=== PATIENT | female | born 1960 | race Caucasian/White ===

== ENCOUNTER 2024-09-19 10:50 | Emergency (ER) | payer MEDICARE, SELFPAY ==
--- NOTE | 2024-09-19 10:55 | XR_ITS ---
WS: [id number] XR wrist LT min 3V* [id number] REASON FOR EXAM: fall/injury FINDINGS: Minimally displaced transverse fracture of the distal radial metaphysis with vertical component extending through No significant angulation at the fracture site. No significant foreshortening of the radius. Ulnar styloid intact and normal scapholunate interval. The joint surface. XR/XR wrist LT min 3V* [id number] IMPRESSION: Left wrist fracture as above.
[2024-09-19 11:09] VITALS: BP 123/80; PULSE 75; RESP 16; TEMP 36.7; O2SAT 95; BMI 30.4
--- NOTE | 2024-09-19 11:16 | W.ED.EXTPRO ---
HPI - Extremity Problem General: Chief complaint: Extremity Injury, Upper Stated complaint: fall left wrist area injury Time Seen by Provider: 09/19/24 10:55 Source: patient Mode of arrival: ambulatory Limitations: no limitations History of Present Illness: 63-year-old female states that she had fell in the shower yesterday. States she landed on her left wrist has been having increasing pain in that wrist and swelling rates her pain a 5 out of 10 currently denies hitting her head denies any other injuries. Associated symptoms: Deny chest pain, fever(s) or rash Related Data Previous Rx's ?Medication ?Instructions ?Recorded hydrocodone 5 mg-acetaminophen 325 1 tab PO Q6H PRN pain #14 tabs 09/19/24 mg tablet Allergies Allergy/AdvReac Type Severity Reaction Status Date / Time No Known Allergies Allergy Verified 09/19/24 11:13 Review of Systems Const: Denies: fever(s), chills, body aches or change in appetite ENMT: Denies: throat pain or dental pain Card: Denies: chest pain Resp: Denies: dyspnea GI: Denies: abdominal pain, nausea, vomiting or diarrhea Musc: Reports: extremity pain; Denies: neck pain or back pain Skin/Breast: Denies: rash Neuro: Denies: headache(s) Physical Exam Const: COMMON NORMALS: no acute distress, patient oriented x3 and healthy appearing HENMT: COMMON NORMALS: normocephalic and atraumatic HEAD & SCALP: normocephalic and atraumatic Neck/C-Spine: COMMON NORMALS: full ROM and supple Chest: COMMONS NORMALS: normal inspection of the chest Resp: COMMON NORMALS: normal respiratory effort Cardio: COMMON NORMALS: regular rate RATE: regular rate Extremity: COMMON NORMALS: full ROM NARRATIVE EXTREMITY EXAM: tenderness to right wrist and swelling distal pulses intact Neuro: COMMON NORMALS: patient oriented x3, moves all extremities and no focal motor deficits Psych: COMMON NORMALS: mental status grossly normal, Normal thought process present and cooperative THOUGHT PROCESS: Normal thought process present Skin: COMMON NORMALS: no rashes or lesions noted and no wounds GENERAL SKIN EXAM: no rashes or lesions noted Course Vital Signs: Vital signs: Vital Signs Temperature 98.1 F 09/19/24 11:09 Pulse Rate 75 09/19/24 11:09 Respiratory Rate 16 09/19/24 11:09 Blood Pressure 123/80 09/19/24 11:09 Pulse Oximetry 95 09/19/24 11:09 Oxygen Delivery Me thod Room Air 09/19/24 11:09 MDM - Extremity (Nontraumatic) Medical Decision Making Patient presents here with a left wrist fracture from a fall we will place her in a splint and have her follow-up with orthopedics she is return if worsening she understands agrees to plan Medical Records I reviewed the patient's medical records. Lab Data Radiology Impressions Wrist X-Ray 09/19/24 10:55 IMPRESSION: Left wrist fracture as above. All radiology interpretation(s) finalized by discharge Discharge Plan Discharge Patient Disposition: Home Clinical Impression: Closed fracture of left wrist Qualifiers: Encounter type: initial encounter Qualified Code(s): S62.102A - Fracture of unspecified carpal bone, left wrist, initial encounter for closed fracture Condition: Stable Prescriptions: New hydrocodone-acetaminophen 5-325 mg tablet 1 tab PO Q6H PRN (Reason: pain) Qty: 14 0RF Discharge Orders: Discharge ED (Routine); Ordered 09/19/24 Ordered By: Yessica Sharma Referrals: Carl Barnard DO [Physician, Orthopedics] - 4-7 days Discharge Diet: Advance as tolerated Discharge Activity: Resume usual activity Patient Instructions: Wrist Fracture in Adults (ED) Print Language: Bulgarian Coding Level of Care Code ED Personnel Associate for Anahy Singleton
[2024-09-19] MEDS: HYDROcodone-acetaminophen 5-325 mg Tablet 1 TAB PO (11:32)
[2024-09-19 12:40] VITALS: BP 161/92; PULSE 66; O2SAT 98
--- NOTE | 2024-09-19 14:58 | DCPLANNER ---
messaged ortho for er f/u
== END 2024-09-19 12:40 | disposition home or self-care (01) ==
PROVIDERS: Emergency Provider Emergency Medicine
DX: S62.102A Fracture of unspecified carpal bone, left wrist, initial encounter for closed fracture (principal); W18.2XXA Fall in (into) shower or empty bathtub, initial encounter
CPT/HCPCS: 29125; 73110; 99283; J9999

== ENCOUNTER 2025-05-11 09:00 | Emergency (ER) | payer MEDICARE, MEDICAID, SELFPAY ==
[2025-05-11 09:05] VITALS: BP 158/88; PULSE 77; RESP 15; TEMP 36.6; O2SAT 98; BMI 26.4
--- NOTE | 2025-05-11 09:09 | ECG_ITS ---
[id number]: 2025-05-11 Pat Name: Dayana Marinelli Department: Room: Gender: Female Shoe Designer: : 1960 Requested By: Yessica Sharma Order Number: [id number] Reading MD: CHACORTA RICHTER Measurements Intervals Laura Rate: 63 P: 77 DC: 201 QRS: 60 QRSD: 96 T: 72 QT: 399 QTc: 411 Interpretive Statements SINUS RHYTHM LOW QRS VOLTAGE IN PRECORDIAL LEADS [QRS DEFLECTION < 1.0 mV IN CHEST LEADS] No previous ECG available for comparison Electronically Signed On 05-14-2025 18:53:05 DATA CONTROL ASSISTANT by CHACORTA RICHTER [email or web address]
--- OUTSIDE RECORDS SUMMARY | 2025-05-11 09:09 | XMS_ITS | Encounter Summary ---
Author Organization [facility] Address [address] [place] [address] Care Team Providers Care Burrer Machine Name Role Phone Akiko Lara MD Primary Care Provider [phone] Encounter Details Date Type Department Care Team (Late st Contact Info) Description 09/22/2024 Telephone [facility] [place] [address] [place] [address] Akiko Lara MD [address] [place] [address] Social History Tobacco Use Types Packs/Day Years Used Date Smoking Tobacco: Former Cigarettes 1 35 1 06/23/1985 - 04/22/2021 Smokeless Tobacco: Former Comments:quit 04/2021 Alcohol Use Standard Drinks/Week Comments No 0 (1 standard drink = 0.6 oz pur e alcohol) AUDIT-C Answer Date Recorded Q1: How often do you have a drink containing alcohol? Never 04/22/2024 Q2: How many drinks containi ng alcohol do you have on a typical day when you are drinking? Patient does not drink Q3: How often do you have si x or more drinks on one occasion? 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
--- OUTSIDE RECORDS SUMMARY | 2025-05-11 09:09 | XMS_ITS | Clinical Summary ---
Author Organization [facility] Address [address] [facility] [facility] [place] [address] Phone Care Team Providers Care Nuclear Design Engineer Name Role Phone Akiko Lara MD Primary Care Provider Allergies No known active allergies Medications budesonide-form oterol (SYMBICORT) 160-4.5 mcg/actuation HFA Aerosol Inhaler Take 2 Puffs by inhalation 2 times daily. Active tiotropium (SPIRIVA) 18 mcg capsule Take 18 mcg by inhalation daily. Active albuterol HFA 90 mcg inhaler Take 2 Puffs by inhalation every 6 hours as needed for Shortness of Breath. Active traZODone (DESYREL) 150 mg tablet Take 150 mg by mouth daily at bedtime. Active lisinopril (PRINIVIL) 20 mg tablet Take 20 mg by mouth daily. Active atorvastatin (LIPITOR) 10 mg tablet Take 10 mg by mouth Daily LATE. Active ALPRAZolam (XANAX) 0.25 mg tablet Take 0.25 mg by mouth. 8 Active escitalopram oxalate (LEXAPRO) 10 mg tablet TAKE 1 TABLET(10 MG) BY MOUTH DAILY 8 Active carvediloL (COREG) 25 mg tablet Take 25 mg by mouth 2 times daily. 1 Active levothyroxine 75 mcg tablet Take 1 Tablet by mouth daily. 2 Active meloxicam (MOBIC) 15 mg tablet Take 15 mg by mouth daily. 1 Active omeprazole (PriLOSEC) 20 mg Capsule, Delayed Release(E.C.) Take 20 mg by mouth daily. Active gabapentin (NEURONTIN) 100 mg capsule Take 100 mg by mouth 3 times daily. 2 Active mv,Ca,min-folic acid-vit K1 (One-A-Day Women's 50 Plus) 400-20 mcg Tablet Take 1 Tablet by mouth daily. Active nitrofurantoin (MACROBID) 100 mg capsule TAKE one Capsule BY MOUTH TWICE DAILY for 7 days 2 Active Active Problems Problem Noted Date Diagnosed Date Adhesive capsulitis of right shoulder 06/21/2021 Encounters Date Type Department Care Team Description 04/21/2025 External Device Data [facility] ABSTRACTION Provider, Abstract 03/31/2025 External Device Data [facility] ABSTRACTION Provider, Abstract 03/11/2025 External Device Data [facility] ABSTRACTION Provider, Abstract 03/10/2025 External Device Data [facility] ABSTRACTION Provider, Abstract from Last 3 Months Family History Medical History Relation Name Comments Other Father Other Mother Relation Name Status Comments Father Mother Social History Tobacco Use Types Packs/Day Years Used Date Smoking Tobacco: Former Cigarettes 2 35 1 7 - 2011 Smokeless Tobacco: Never Comments:e cigarette Alcohol Use Standard Drinks/Week Comments No 0 (1 standard drink = 0.6 oz pur e alcohol) Comments No Sex and Gender Information Value Date Recorded Sex Assigned at Not on file 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 Gender Identity Not on file Sexual Orientation Not on file Occupation Industry Job Start Date Job End Date Not on file Not on file Not on file Not on file Last Filed Vital Signs Vital Sign Reading Time Taken Comments Blood Pressure 120/76 07/30/2024 8:45 AM CDT Pulse 71 01/09/2019 8:12 AM CDT Temperature 36.6 C (97.8 F) 01/09/2019 8:12 AM CDT Respiratory Rate 18 01/09/2019 8:12 AM CDT Oxygen Saturation 97% 01/09/2019 8:12 AM CDT Inhaled Oxygen Concentration - - Weight 70.8 kg (156 lb) 07/30/2024 8:45 AM CDT Height 154.9 cm (5' 1 ) 07/30/2024 8:45 AM CDT Body Mass Index 29.48 07/30/2024 8:45 AM CDT Plan of Treatment Health Maintenance Due Date Last Done Comments Pre-Diabetes and Diabetes Screening 1962 DTAP/TDAP/TD VACCINES (1 - Tdap) 1981 HPV/Cotest (21-29) 10/04/1983 CERVICAL CANCER SCREENING 1992 HPV/Cotest (30-65) 1992 PAP SMEAR 1992 COLORECTAL SCREENING 10/04/2007 Colorectal Cancer Screening 10/04/2007 FIT-DNA Q 3 years 10/04/2007 FIT/FOBT Q 1 year 10/04/2007 Flex Sig/CT Colonography Q 5 years 10/04/2007 RSV VACCINE (60+ or ) (1 - Risk 50-74 years 1-dose series) 2012 ZOSTER VACCINE (1 of 2) 2012 INFLUENZA VACCINE (#1) 2024 4, 04/02/2023, 03/09/2022, Additional history exists BREAST CANCER SCREENING 01/24/2025 01/25/20 24, 01/25/2024, 04/18/2022, Additional history exists Lung Cancer Screening 04/12/2025 04/12/2024 , 03/15/2023, 01/03/2022, Additional history exists Insurance [facility] Care Teams Nuclear Design Engineer Relationship Specialty Start Date End Date Akiko Lara MD [address] [place] [id number] PCP - General Family Practice 08/21/10
--- OUTSIDE RECORDS SUMMARY | 2025-05-11 09:09 | XMS_ITS | Clinical Summary ---
Author Organization [facility] [address] [place] [address] Care Team Providers Care Hollow Core Door Frame Assembler Name Role Phone Akiko Lara MD Primary Care Provider Allergies No known active allergies Medications albuterol HFA (PROVENTIL HFA,VENTOLIN HFA,PROAIR HFA) 90 mcg/actuation inhaler Inhale 2 puffs every 4 (four) hours as needed for wheezing Active mv,Ca,min-foli c acid-vit K1 (One-A-Day Women's 50 Plus) 400-20 mcg tablet Take 1 tablet by mouth daily Active omeprazole (PriLOSEC) 20 mg capsule Take 1 capsule (20 mg total) by mouth daily Active Symbicort 160-4.5 mcg/actuation inhaler Inhale 2 puffs 2 (two) times a day 12/07/19 24 Active Spiriva Respimat 2.5 mcg/actuation inhaler INHALE TWO PUFFS BY MOUTH ONCE DAILY as directed 05/22/19 25 Active albuterol 2.5 mg /3 mL (0.083 %) nebulizer solution INHALE ONE vial BY MOUTH via NEBULIZER EVERY 4 TO 6 HOURS NEEDED FOR SHORTNESS OF BREATH 05/30/19 25 Active escitalopram (LEXAPRO) 20 mg tablet TAKE one Tablet BY MOUTH ONCE DAILY 90 tablet 3 08/05/19 25 Active atorvastatin (LIPITOR) 40 mg tablet Take 1 tablet (40 mg total) by mouth daily 100 tablet 1 11/05/19 25 Active levothyroxine (SYNTHROID) 75 mcg tablet TAKE 1 TABLET(75 MCG) BY MOUTH DAILY 90 tablet 1 12/19/19 25 Active losartan (COZAAR) 50 mg tablet TAKE ONE TABLET BY MOUTH ONCE DAILY 90 tablet 3 01/14/20 25 Active carvediloL (COREG) 25 mg tabletIndicati ons:Coronary artery disease of [place] artery of [place] heart with stable angina pectoris,Hyper tension, essential, benign TAKE ONE TABLET BY MOUTH TWICE DAILY WITH MEALS 180 tablet 3 01/14/20 25 Active traZODone (DESYREL) 100 mg tablet TAKE 2 TABLETS BY MOUTH EVERY NIGHT 200 tablet 1 01/16/20 25 Active ALPRAZolam (XANAX) 0.25 mg tablet Take 1 tablet (0.25 mg total) by mouth nightly as needed for anxiety 30 tablet 4 02/10/20 25 Active ezetimibe (ZETIA) 10 mg tabletIndicati ons:Hyperlipid emia, mixed TAKE 1 TABLET(10 MG) BY MOUTH DAILY 90 tablet 3 03/09/20 25 Active pregabalin (LYRICA) 100 mg capsule Take 1 capsule (100 mg total) by mouth 2 (two) times a day 180 capsule 1 04/23/20 25 Active pregabalin (LYRICA) 100 mg capsule Take 1 capsule (100 mg total) by mouth 2 (two) times a day 180 capsule 01/20/20 25 025 Discontinued pregabalin (LYRICA) 100 mg capsule TAKE 1 CAPSULE(100 MG) BY MOUTH TWICE DAILY 180 capsule 1 04/23/20 25 025 Discontinued(Re order) Active Problems Problem Noted Date Diagnosed Date History of tobacco abuse 09/12/2023 Calcification of aorta 04/02/2023 Assessment & Plan (01/01/2024 11:55 AM CDT): Seen on previous CXR-stable so continue risk factor management Assessment & Plan (04/02/2023 10:27 AM GREASE REFINING SUPERVISOR): Seen on previous CXR-stable so continue risk factor management Coronary artery disease of [place] artery of [place] heart with stable angina pectoris 04/02/2023 Assessment & Plan (11/11/2024 4:29 PM CDT): Cardiac catheterization in 2014 revealed mild nonobstructive coronary artery disease. Currently stable with no symptoms suggestive of angina. Continue medical therapy including beta-jacquie, aspirin, statin/ezetimibe Assessment & Plan (01/01/2024 11:56 AM CDT): Stable continue risk factor management and follow up with Cardiology Assessment & Plan (04/02/2023 12:55 PM GREASE REFINING SUPERVISOR): Last cath didn't show stenosis in range needing intervention. Continue risk factor management and rx medications Medicare annual wellness visit, subsequent 03/09 Assessment & Plan (04/22/2024 12:56 PM GREASE REFINING SUPERVISOR): Maintain a healthy balanced diet.Encouraged to maintain a regular exercise regimen. No fall risk Assessment & Plan (04/02/2023 12:53 PM GREASE REFINING SUPERVISOR): Maintain a healthy balanced diet.Encouraged to maintain a regular exercise regimen. No fall risk Assessment & Plan (03/09/2022 8:01 AM CDT): Recommend maintain regular cardiovascular program as tolerated. Pharyngoesophageal dysphagia 11/18/2021 Assessment & Plan (11/18/2021 12:02 PM CDT): I don't feel any obvious cause so will order a swallowing study for further evaluation. Discussed causes and chewing food better and increasing fluids. Will also check a CXR Vitamin D deficiency 07/01/2020 Assessment & Plan (07/01/2020 1:20 PM GREASE REFINING SUPERVISOR): She did not tolerate the rx dose back in january so if still low will erx along with zofran for nausea. Neuropathy 07/01/2020 Assessment & Plan (10/23/2024 11:01 AM CDT): Due to slight worsening of symptoms we will go ahead and increase her Lyrica to 100 mg b.i.d.. If this is not help she will let me know and can go back to the 75 Assessment & Plan (06/06/2024 2:50 PM GREASE REFINING SUPERVISOR): Condition is stable. Continue Lyrica 75 mg BIDmedications, risks and usage discussed if applicable, refills given if applicable and pt to f/u as scheduled. Seek medical care for new or worsening symptoms. Patient would benefit from a wheeled walker with a seat due to intermittent symptoms of numbness making it difficult for her to walk and needing to sit down quickly Assessment & Plan (04/22/2024 1:12 PM GREASE REFINING SUPERVISOR): Currently stable on Lyrica. Assessment & Plan (01/01/2024 11:55 AM CDT): Currently stable on Lyrica. Assessment & Plan (04/02/2023 12:56 PM GREASE REFINING SUPERVISOR): Reviewed risks, benefits and side effects of medications. She did not tolerate gabapentin so will try low dose lyrica. Call if not improving or if worsens. Assessment & Plan (03/09/2022 8:07 AM CDT): Condition is stable. Continue prescribed medications, risks and usage discussed if applicable, refills given if applicable and pt to f/u as scheduled. Seek medical care for new or worsening symptoms. Assessment & Plan (07/01/2020 1:20 PM GREASE REFINING SUPERVISOR): Will check vitamin d level and if normal will order a EMG/ncs of legs Anxiety 05/31/2020 Assessment & Plan (05/31/2020 3:10 PM GREASE REFINING SUPERVISOR): Reviewed risks, benefits and side effects of medications.Currently stable so continue current management. Call if problems develop. Other constipation 01/15/2020 Assessment & Plan (01/15/2020 1:38 PM CDT): Discussed otc options to help with this and she will increase fluids and call if not improving Chronic pain of both knees 08/29/2018 Assessment & Plan (03/09/2022 8:06 AM CDT): Chronic stable left > right Assessment & Plan (08/30/2018 12:05 PM CDT): Will check xrays and she will continue exercise and conservative measures for now. Call if worsens. Alcoholic cardiomyopathy 02/01/2018 Assessment & Plan (11/11/2024 4:30 PM CDT): History of nonischemic cardiomyopathy secondary to alcohol use with EF as low as 40% with normalization of LV function. Cardiac catheterization at that time showed mild nonobstructive coronary artery disease. Most recent echocardiogram in December 2019 showed normal global and regional LV systolic function with EF 73%. -continue medical therapy including carvedilol, losartan - follow up with Dr. Hampton in 1 year Assessment & Plan (10/23/2024 11:04 AM CDT): Stable and followed yearly by cardiology Assessment & Plan (04/02/2023 10:27 AM GREASE REFINING SUPERVISOR): Stable and followed yearly by cardiology Assessment & Plan (06/23/2021 12:51 PM GREASE REFINING SUPERVISOR): Stable and followed yearly by cardiology Chronic systolic heart failure 02/01/2018 Assessment & Plan (10/23/2024 11:01 AM CDT): Stable and managed by Cardiology Assessment & Plan (01/01/2024 11:55 AM CDT): Stable and managed by Cardiology Assessment & Plan (04/02/2023 10:28 AM GREASE REFINING SUPERVISOR): Stable and managed by cardiology Assessment & Plan (03/09/2022 8:06 AM CDT): Condition is stable. Continue prescribed medications, risks and usage discussed if applicable, refills given if applicable and pt to f/u as scheduled. Seek medical care for new or worsening symptoms. Assessment & Plan (06/23/2021 12:51 PM GREASE REFINING SUPERVISOR): Currently stable so continue yearly follow up with cardiology Assessment & Plan (08/30/2018 12:07 PM CDT): Currently stable so continue current management. Call if problems develop. Continue follow up with cardiology Hypothyroidism 11/02/2017 Overview (11/02/2017): Hypothyroidism; Comments: MLM 06/22/2014 - Assessment & Plan (10/23/2024 11:00 AM CDT): Currently stable so continue current prescription medication levothyroxine for management. Call if problems develop. Assessment & Plan (01/01/2024 11:58 AM CDT): Currently stable so continue current prescription medication levothyroxine for management. Call if problems develop. Assessment & Plan (04/02/2023 10:28 AM GREASE REFINING SUPERVISOR): Currently stable so continue current prescription medication for management. Call if problems develop. Assessment & Plan (09/12/2022 9:49 AM CDT): Currently stable so continue current prescription medication for management. Call if problems develop. Assessment & Plan (03/09/2022 8:06 AM CDT): Condition is stable. Continue prescribed medications, risks and usage discussed if applicable, refills given if applicable and pt to f/u as scheduled. Seek medical care for new or worsening symptoms. Assessment & Plan (11/18/2021 12:03 PM CDT): Will recheck tsh to make sure controlled Assessment & Plan (06/23/2021 10:55 AM GREASE REFINING SUPERVISOR): Currently stable so continue current prescription medication for management. Call if problems develop. Assessment & Plan (03/06/2019 1:52 PM CDT): Currently stable so continue current management. Call if problems develop. Will recheck at the lab Assessment & Plan (11/02/2017 12:20 PM CDT): Began Levothyroxine 50 mcg 2 months ago, will recheck labs today, already has lab requisition Panlobular emphysema ([facility]) 08/23/2017 Assessment & Plan (10/23/2024 11:01 AM CDT): Currently stable so continue current prescription medication albuterol for management. Call if problems develop. Assessment & Plan (01/01/2024 11:54 AM CDT): Currently stable so continue current prescription medication albuterol for management. Call if problems develop. Assessment & Plan (04/02/2023 10:29 AM GREASE REFINING SUPERVISOR): Currently stable so continue current prescription medication for management. Call if problems develop. Assessment & Plan (03/09/2022 8:05 AM CDT): Chronic stable under Pulmonary Assessment & Plan (06/23/2021 10:56 AM GREASE REFINING SUPERVISOR): Currently stable so continue current prescription medication for management. Call if problems develop. Assessment & Plan (07/01/2020 1:21 PM GREASE REFINING SUPERVISOR): Zpack as directed and follow up with pulmonary next week as scheduled. Call if worsens in the mean time Assessment & Plan (09/04/2019 3:44 PM CDT): Reviewed risks, benefits and side effects of medications.Call if not improving or if worsens. Will try another prednisone taper and tessalon prn. If not improving she will call and recheck A cxr Assessment & Plan (03/06/2019 1:51 PM CDT): Currently stable so continue current management. Call if problems develop. Immunizations updated today Assessment & Plan (08/30/2018 12:05 PM CDT): Currently stable so continue current management. Call if problems develop. Assessment & Plan (08/23/2017 4:56 PM CDT): Currently stable so continue current management. Call if problems develop. Screening for breast cancer 08/21/2017 Peripheral artery disease 12/21/2016 Assessment & Plan (01/01/2024 11:55 AM CDT): Stable continue risk factor management Assessment & Plan (04/02/2023 12:54 PM GREASE REFINING SUPERVISOR): Stable continue risk factor management Assessment & Plan (03/09/2022 8:04 AM CDT): Condition is stable. Continue prescribed medications, risks and usage discussed if applicable, refills given if applicable and pt to f/u as scheduled. Seek medical care for new or worsening symptoms. Assessment & Plan (06/23/2021 12:51 PM GREASE REFINING SUPERVISOR): Stable so continue current meds Assessment & Plan (01/15/2020 1:39 PM CDT): Currently stable so continue current management. Call if problems develop. Assessment & Plan (08/30/2018 12:07 PM CDT): Currently stable so continue current management. Call if problems develop. Assessment & Plan (12/21/2016 1:28 PM CDT): [place] category 2 chronic limb ischemia. Continue daily aspirin and walking encouraged. Dilated cardiomyopathy 12/21/2016 Assessment & Plan (03/09/2022 8:05 AM CDT): Condition is stable. Continue prescribed medications, risks and usage discussed if applicable, refills given if applicable and pt to f/u as scheduled. Seek medical care for new or worsening symptoms. Assessment & Plan (12/21/2016 1:26 PM CDT): Now with normal LV function. [place] Heart Association Functional Class 1 (No limitation during ordinary activity). Dayana was encouraged to take her medications as recommended, limit sodium intake, limit alcohol, and monitor weight daily. Dayana was encouraged to call the office immediately if she has a 3-5 lb weight gain overnight or similar weight gain over a week. Hyperlipidemia, mixed 12/18/2016 Assessment & Plan (11/11/2024 4:19 PM CDT): Continue ezetimibe and atorvastatin. Recent lipid panel shows LDL of 106. We did discuss her change to a carnivore diet and she has some concerns about what she can eat that will not affect her cholesterol. I suggested she visit with a dietitian in I put in an order for an ambulatory referral to the dietitian. She agrees that she would like to do that. Assessment & Plan (10/23/2024 11:00 AM CDT): Currently stable so continue current prescription medication Lipitor for management. Call if problems develop. Since she has lost weight and we will see what her current levels are and decide if she needs both of her medications Assessment & Plan (01/01/2024 11:57 AM CDT): Currently stable so continue current prescription medication Lipitor for management. Call if problems develop. Assessment & Plan (04/02/2023 10:28 AM GREASE REFINING SUPERVISOR): Currently stable so continue current prescription medication for management. Call if problems develop. Assessment & Plan (09/12/2022 9:48 AM CDT): Currently stable so continue current prescription medication for management. Call if problems develop. Assessment & Plan (03/09/2022 8:04 AM CDT): Condition is stable. Continue prescribed medications, risks and usage discussed if applicable, refills given if applicable and pt to f/u as scheduled. Seek medical care for new or worsening symptoms. Assessment & Plan (06/23/2021 10:55 AM GREASE REFINING SUPERVISOR): Currently stable so continue current prescription medication for management. Call if problems develop.Maintain a low cholesterol diet and regular exercise regimen. Risks and benefits of medications discussed. Assessment & Plan (03/06/2019 1:53 PM CDT): Maintain a low cholesterol diet and regular exercise regimen. Risks and benefits of medications discussed. Recheck at lab Assessment & Plan (08/23/2017 4:57 PM CDT): Maintain a low cholesterol diet and regular exercise regimen. Risks and benefits of medications discussed. Assessment & Plan (12/21/2016 1:27 PM CDT): Tolerating medical therapy without significant side effects. Will continue current medications without changes. A low fat low cholesterol diet encouraged. She does not want a dietary consult. An updated lipid panel will be obtained in December of 2017. Assessment & Plan (12/18/2016 1:19 PM CDT): Maintain a low cholesterol diet and regular exercise regimen. Risks and benefits of medications discussed. Hypertension, essential, benign 08/19/2014 Overview (08/18/2016): Benign essential hypertension Assessment & Plan (11/11/2024 4:19 PM CDT): Blood pressure stable on current medical therapy. Her primary care provider had recently decreased her carvedilol from 25 mg b.i.d. to 12.5 mg b.i.d. due to lower blood pressure readings since she has had her weight loss. Assessment & Plan (10/23/2024 11:00 AM CDT): Due to her symptoms consistent with hypotension we will cut her carvedilol in half to 12.5 mg twice a day and continue with the losartan 50 mg daily. She will also discuss this with her air conditioning mechanic industrial and let me know if her symptoms persist Assessment & Plan (06/06/2024 2:50 PM GREASE REFINING SUPERVISOR): Condition is stable. Continue losartan 50 mg daily medications, risks and usage discussed if applicable, refills given if applicable and pt to f/u as scheduled. Seek medical care for new or worsening symptoms. Assessment & Plan (04/22/2024 1:12 PM GREASE REFINING SUPERVISOR): Currently stable so continue current prescription medication including losartan for management. Call if problems develop.Encouraged to maintain a regular exercise regimen. Assessment & Plan (01/01/2024 11:58 AM CDT): Currently stable so continue current prescription medication including losartan for management. Call if problems develop.Encouraged to maintain a regular exercise regimen. Assessment & Plan (04/02/2023 10:28 AM GREASE REFINING SUPERVISOR): Currently stable so continue current prescription medication for management. Call if problems develop.Encouraged to maintain a regular exercise regimen. Assessment & Plan (09/12/2022 9:47 AM CDT): Currently stable so continue current prescription medication for management. Call if problems develop. Assessment & Plan (03/09/2022 8:04 AM CDT): Condition is stable. Continue prescribed medications, risks and usage discussed if applicable, refills given if applicable and pt to f/u as scheduled. Seek medical care for new or worsening symptoms. Assessment & Plan (11/18/2021 12:03 PM CDT): Currently stable so continue current prescription medication for management. Call if problems develop. Assessment & Plan (06/23/2021 10:54 AM GREASE REFINING SUPERVISOR): Currently stable so continue current prescription medication for management. Call if problems develop.Encouraged to maintain a regular exercise regimen. Assessment & Plan (06/01/2020 8:35 AM GREASE REFINING SUPERVISOR): Currently stable so continue current management. Call if problems develop.Encouraged to maintain a regular exercise regimen. Assessment & Plan (09/04/2019 3:45 PM CDT): Currently stable so continue current management. Call if problems develop. Assessment & Plan (03/06/2019 1:51 PM CDT): Currently stable so continue current management. Call if problems develop.Encouraged to maintain a regular exercise regimen. Assessment & Plan (08/29/2018 4:10 PM CDT): Currently stable so continue current management. Call if problems develop. Assessment & Plan (08/23/2017 4:56 PM CDT): Currently stable so continue current management. Call if problems develop. Assessment & Plan (12/21/2016 1:27 PM CDT): Hypertension is well controlled on current medical regimen without significant side effects. Will continue current medications without changes. Discussed sodium restriction, maintaining ideal body weight and regular exercise program as physiologic means to achieve blood pressure control. The patient will strive towards this. Insomnia 05/27/2012 Overview (08/17/2016): Insomnia, Other Assessment & Plan (06/23/2021 10:56 AM GREASE REFINING SUPERVISOR): Currently stable so continue current prescription medication for management. Call if problems develop.Reviewed risks, benefits and side effects of medications. Major depressive disorder wi th single episode, in full remission Overview (09/12/2022): Depression Assessment & Plan (04/22/2024 1:12 PM GREASE REFINING SUPERVISOR): Currently stable so continue current prescription medication Lexapro for management. Call if problems develop. Assessment & Plan (01/01/2024 11:54 AM CDT): Currently stable so continue current prescription medication Lexapro for management. Call if problems develop. Assessment & Plan (04/02/2023 10:28 AM GREASE REFINING SUPERVISOR): Currently stable so continue current prescription medication for management. Call if problems develop. Assessment & Plan (09/12/2022 9:48 AM CDT): Reviewed risks, benefits and side effects of medications. Will increase lexapro to 20 mg a day and she will call if not improving in the next 2-3 weeks or if anytime she worsens. Resolved Problems Problem Noted Date Diagnosed Date Resolved Date Acute cough 01/17/2024 04/22/2024 Assessment & Plan (01/17/2024 9:56 AM CDT): Conservative management with [id number] medication. Bronchitis 01/17/2024 04/22/2024 Assessment & Plan (01/17/2024 9:56 AM CDT): Azithromycin and Medrol Dosepak given, increase water intake. Rest, take Tylenol for pain or fever, take Mucinex [id number] for cough and sinus pressure. Follow-up with PCP in 2 weeks if symptoms do not improve. Obesity (BMI 30-39.9) 01/17/20242024 Assessment & Plan (06/06/2024 2:51 PM GREASE REFINING SUPERVISOR): BMI: Healthy diet. An optimal BMI (body mass index) is between 20 and 25. I encourage options for healthy lifestyle including diet modifications, ways to increase caloric expenditure such as exercise and physical activity, and how to set realistic weight loss goals to ensure success. - A goal of 1 lb of weight loss a week, or 4 lbs a month is realistic and maintainable for most people. - Some find tracking calories/exercise/water intake on an breanna such as [employer] or [employer] improve compliance and motivation. - A lifestyle modification leonarda can help keep you on track and hold you accountable. - Physical activity that increases HR for at least 30min 5x per week is encouraged. - Decreasing your overall calorie intake to 1200 - 1500 calories per day usually results in a calorie deficit to aid in weight loss. If you feel lightheaded or weak with this calorie intake consider increasing your calories or eat smaller meals more often throughout the day. - Try eating a higher protein breakfast to give you energy and limit snacking during the day. - Increase water intake to 2-3L of water daily. Assessment & Plan (01/17/2024 9:57 AM CDT): Healthy diet. Acute non-recurrent maxillary sinusitis 05/02/2022 09/11/2022 Assessment & Plan (05/02/2022 1:34 PM GREASE REFINING SUPERVISOR): Strep, COVID and flu tests negative in office today. Will treat sebastian a zpack and she will use otc meds prn.Call if not improving or if worsens. Morbid obesity 06/23/2021 09/12/2022 Assessment & Plan (06/23/2021 12:52 PM GREASE REFINING SUPERVISOR): Encouraged to maintain a regular exercise regimen. Comorbid conditions include HTN Adhesive capsulitis of right shoulder 06/21/2021 03/09/2022 COVID 12/23/2020 04/22/2024 Arthralgia 05/31/2020 03/09/2022 Assessment & Plan (06/01/2020 8:33 AM GREASE REFINING SUPERVISOR): Reviewed risks, benefits and side effects of medications. Will try to control pain with a steroid taper and check labs. Further work up or management pending results and response to therapy Diverticulitis 01/15/2020 10/23/2024 Assessment & Plan (01/15/2020 1:37 PM CDT): Finish antibiotics and follow up with GI for colonoscopy in 6 weeks. Call if worsens BMI 30.0-30.9,adult 08/30/2018 04/22/20 24 Assessment & Plan (04/02/2023 8:16 AM GREASE REFINING SUPERVISOR): BMI Follow-up includes: education provided. Assessment & Plan (06/01/2020 8:34 AM GREASE REFINING SUPERVISOR): Maintain a healthy balanced diet. Assessment & Plan (09/04/2019 3:45 PM CDT): Encouraged to maintain a regular exercise regimen. Assessment & Plan (08/30/2018 12:08 PM CDT): Encouraged to maintain a regular exercise regimen. Pulmonary emphysema 12/18/2016 08/24/19 18 Assessment & Plan (12/18/2016 1:19 PM CDT): COPD is stable. Continue current medications. Encounters Date Type Department Care Team Description 03/10/2025 ACO Clinical Pharmacist [facility] Organization [address] [place] [id number] Dalila Gomez RPh from Last 3 Months Immunizations Immunization Administration Dates Next Due Influenza, Quadrivalent, Spl it, Preservative Free, Intramuscular 04/02/2023,03/09/2022,01/15/2020,03/06,04/19/2015 Influenza, Trivalent, Preser vative Free, Intramuscular 04/22/2024 Influenza, Unspecified 01/13/2024(Deferr ed: Not available from anesthesia technician),01/01/2024(Deferred: Patient Refused),03/09/2022(Deferred: Patient decision),06/23/2021(Deferred: Patient Refused),03/08/2021(Deferred: Patient Refused),08/21/2017(Deferred: Patient Refused),03/13/2016(Deferred: Patient Refused) Pneumococcal Conjugate Pcv20 04/02/2023 Pneumococcal Polysaccharide PPV23 03/06/2019 Surgical History Surgery Date Site/Laterality Comments SECTION section HERNIA REPAIR 1987 Hernia repair HYSTERECTOMY Hysterectomy Medical History Medical History Date Comments Depression Depression Hypothyroidism Hypothyroidism; Comments: MLM 06/22/2014 - Peripheral artery disease 12/21/2016 Hypertension, essential, benign 08/19/2014 Benign essential hypertension Dilated cardiomyopathy (HCC) 12/21/2016 COPD (chronic obstructive pu lmonary disease) CHF (congestive heart failure) (HCC) Family History Medical History Relation Name Comments COPD Brother 1 Heart failure Brother 1 Coronary artery disease Mother Violet nary artery disease; /Coronary artery disease; Hypertension Mother Hypertension; Relation Name Status Comments Brother 1 Alive Brother 2 Alive Brother 3 Alive Daughter Alive Father Mother Sister 1 Alive Sister 2 Alive Sister 3 Alive Son Alive Social History Tobacco Use Types Packs/Day Years [...] on file Legal Sex 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 Gender Identity Female 05/30/2021 12:14 PM GREASE REFINING SUPERVISOR Sexual Orientation Straight 05/30/2021 12 :14 PM GREASE REFINING SUPERVISOR Last Filed Vital Signs Vital Sign Reading Time Taken Comments Blood Pressure 115/70 11/11/2024 2:33 PM CDT Pulse 73 11/11/2024 2:33 PM CDT Temperature 36.7 C (98.1 F) 04/22/2024 12:46 PM GREASE REFINING SUPERVISOR Respiratory Rate 18 04/22/2024 12:46 PM GREASE REFINING SUPERVISOR Oxygen Saturation 93% 11/11/2024 2:33 PM CDT Inhaled Oxygen Concentration - - Weight 69.9 kg (154 lb) 11/11/2024 2:33 PM CDT Height 154.9 cm (5' 1 ) 11/11/2024 2:33 PM CDT Body Mass Index 29.1 11/11/2024 2:33 PM CDT Plan of Treatment Health Maintenance Due Date Last Done Comments DTaP/Tdap/Td Vaccine (1 - Tdap) 1973 Hepatitis B Screening 1980 Zoster Vaccine (1 of 2) 2012 Colon Cancer Screening-Colonoscopy 03/29/2019 03/29/2016 Influenza Vaccine (#1) 2025 , 04/02/2023, 03/09/2022, Additional history exists Breast Cancer Screening-Mammogram 01/24/2025 01/25/2024, 04/18/2022, 09/14/2017 Lung Cancer Screening 04/13/2025 04/12/2024 , 03/15/2023, 01/03/2022, Additional history exists Depression Screening 04/22/2025 04/22/2024, 04/02/2023, 09/11/2022, Additional history exists Regular Well Visit/Exam 18-64 04/22/2025, 04/02/2023, 03/09/2022 Colon Cancer Screening-CT Colonography Discontinued 03/29/2016 Colon Cancer Screening-DNA Stool Discontinued 03/29/20 Colon Cancer Screening-FIT Discontinued 03/29/2016 Colon Cancer Screening-Sigmoidoscopy Discontinued 03/29/2016 Hepatitis C Screening Completed 01/07/2020 Pneumococcal vaccine <65 Completed 04/02/2023, 02/12 Procedures Procedure Name Priority Date/Time Associated Diagnosis Comments CT LUNG CANCER SCREENING Schedule Routine, Read Routine (OP Routine) 04/12/2024 11:23 AM GREASE REFINING SUPERVISOR Personal history of nicotine dependence SCREENING MAMMOGRAM BILATERAL W JULIUS Schedule Routine, Read Routine (OP Routine) 01/25/2024 8:26 AM CDT Screening mammogram, encounter for HEPATITIS PANEL, ACUTE Routine 01/07/2020 3:43 AM CDT HM COLONOSCOPY Routine 03/29/2016 from Last 3 Months or Most Recently Relevant to Health Maintenance Results * CT Lung Cancer Screening (04/12/2024 11:23 AM GREASE REFINING SUPERVISOR) Anatomical Region Laterality Modality Chest N/A Computed Tomogra phy 04/14/2024 8:19 AM GREASE REFINING SUPERVISOR Impressions 04/14/2024 8:19 AM GREASE REFINING SUPERVISOR 1. LungRADS Category 2 (benign) . Recommend Low dose Screening CT of chest in 12 months. 2. Mild centrilobular emphysematous changes. 3. Few scattered 1 to 2 mm pulmonary nodules. No new nodules. LungRADS Categories: 1 - Negative (no nodules, or only benign calcified or fat-containing nodules) 2 - Benign Appearance or Behavior (nodules with very low likelihood of becoming a clinically active cancer due to size or lack of growth) 3 - Probably Benign (probably benign findings-short term follow up suggested; includes nodules with a low likelihood of becoming a clinically active cancer) 4A,4B,4X - Suspicious (category 3 or 4 nodules with findings for which additional diagnostic testing and/or tissue sampling is recommended) S - Other (clinically significant or potentially clinically significant findings (non-lung cancer) C - Prior Lung Cancer (modifier for patients with a prior diagnosis of lung cancer who return to screening) Electronically signed by: Trey Payne II, D.O. Narrative 04/14/2024 8:19 AM GREASE REFINING SUPERVISOR EXAMINATION: Lung cancer screening CT of the Chest without intravenous contrast HISTORY: Lung Cancer Screening TECHNIQUE: Low radiation dose chest protocol. No intravenous contrast. Reconstructed slice width 1.[address] Dose Index 4.64 mGy. Dose-length product 182.8 mGy-cm. COMPARISON: 03/15/2023. FINDINGS: Lung nodules or findings of lung cancer: Few scattered 1 to 2 mm nodules appear unchanged from prior. No new nodules. Smoking related lung disease: emphysema Other findings: No pleural effusion. Thyroid is unremarkable. Atherosclerotic calcifications in the aorta and coronary arteries. No pericardial effusion. Calcite granulomas in the liver and spleen. No acute osseous abnormality. Procedure Note Trey Payne II, DO - 04/14/2024 EXAMINATION: Lung cancer screening CT of the Chest without intravenous contrast HISTORY: Lung Cancer Screening TECHNIQUE: Low radiation dose chest protocol. No intravenous contrast. Reconstructed slice width 1.[address] Dose Index 4.64 mGy. Dose-length product 182.8 mGy-cm. COMPARISON: 03/15/2023. FINDINGS: Lung nodules or findings of lung cancer: Few scattered 1 to 2 mm nodules appear unchanged from prior. No new nodules. Smoking related lung disease: emphysema Other findings: No pleural effusion. Thyroid is unremarkable. Atherosclerotic calcifications in the aorta and coronary arteries. No pericardial effusion. Calcite granulomas in the liver and spleen. No acute osseous abnormality. IMPRESSION: 1. LungRADS Category 2 (benign) . Recommend Low dose Screening CT of chest in 12 months. 2. Mild centrilobular emphysematous changes. 3. Few scattered 1 to 2 mm pulmonary nodules. No new nodules. LungRADS Categories: 1 - Negative (no nodules, or only benign calcified or fat-containing nodules) 2 - Benign Appearance or Behavior (nodules with very low likelihood of becoming a clinically active cancer due to size or lack of growth) 3 - Probably Benign (probably benign findings-short term follow up suggested; includes nodules with a low likelihood of becoming a clinically active cancer) 4A,4B,4X - Suspicious (category 3 or 4 nodules with findings for which additional diagnostic testing and/or tissue sampling is recommended) S - Other (clinically significant or potentially clinically significant findings (non-lung cancer) C - Prior Lung Cancer (modifier for patients with a prior diagnosis of lung cancer who return to screening) Electronically signed by: Trey Payne II, D.O. Prince Taylor MD IMG CT PROCEDURES Final Re sult * Screening Mammogram Bilateral W Julius (01/25/2024 8:26 AM CDT) Anatomical Region Laterality Modality Breast Bilateral Mammography 01/25/2024 Impressions 01/25/2024 7:59 AM CDT There is no mammographic evidence of malignancy. Management of any palpable abnormality should be based on clinical grounds. A return to screening mammogram in 1 year is recommended. BI-RADS Category 1: Negative Narrative 01/25/2024 7:59 AM CDT EXAM: Bilateral Digital Screening Mammogram With Tomosynthesis - 01/25/2024 HISTORY: Patient is 63 years old and is seen for screening. The patient has the following family history of breast cancer: maternal aunt, breast cancer and maternal grandmother, breast cancer. FILMS COMPARED: The present examination has been compared to prior imaging studies performed at [facility] on 09/14/2017 and 04/18/2022. MAMMOGRAM FINDINGS: Bilateral CC tomosynthesis and C-view images, bilateral MLO tomosynthesis and C-view images were obtained. AI-CAD of the 2D and /or C-view images was performed. The breasts are almost entirely fatty. There are no suspicious masses, calcifications or areas of architectural distortion to suggest malignancy. Digital breast tomosynthesis was performed and reviewed as a part of this examination. Procedure Note Bridget Lea MD - 01/25/2024 EXAM: Bilateral Digital Screening Mammogram With Tomosynthesis - 01/25/2024 HISTORY: Patient is 63 years old and is seen for screening. The patient hasthe following family history of breast cancer: maternal aunt, breast cancer and maternal grandmother, breast cancer. FILMS COMPARED: The present examination has been compared to prior imaging studies performed at [facility] on 09/14/2017 and 04/18/2022. MAMMOGRAM FINDINGS: Bilateral CC tomosynthesis and C-view images, bilateral MLOtomosynthesis and C-view images were obtained. AI-CAD of the 2D and /or C-view imageswas performed. The breasts are almost entirely fatty. There are no suspicious masses, calcifications or areas of architectural distortion to suggest malignancy. Digital breast tomosynthesis was performed and reviewed as a part ofthis examination. IMPRESSION: There is no mammographic evidence of malignancy. Management of anypalpable abnormality should be based on clinical grounds. A return to screening mammogram in 1 year is recommended. BI-RADS Category 1: Negative Akiko Schwarz MD IMG MAMMO PROCEDURES Final Result * Hepatitis panel, acute (01/07/2020 3:43 AM CDT) Hep A IgM Nonreactive Nonreactive [facility] Comment: Interpretive Data: If Hep A IgM Ab is reported as Equivocal, a new sample should be drawn in two weeks for testing. Current interpretive data was last revised on 19. Testing performed by: [facility], [address] [place] [address]., [id number] Hep B core IgM Nonreactive Nonreactive [facility] Comment: Interpretive Data If HepB Core IgM Ab is reported as Equivocal, a new sample should be drawn in two weeks for testing. Current interpretive data was last revised on 19. Testing performed by: [facility], [address] [place] [address]., [id number] Hep C Ab Nonreactive Nonreactive [facility] Comment: Interpretive Data Nonreactive: Antibodies to HCV not detected. Does NOT exclude the possibility of recent exposure to HCV. Equivocal: Equivocal for HCV antibodies. Supplemental molecular testing will be automatically performed to determine infection status in accordance with current CDC screening recommendations. Reactive: Positive for HCV antibodies. This may represent current or past HCV infection. Supplemental molecular testing will be automatically performed to determine current infection status in accordance with current CDC screening recommendations. Interpretive data was last revised on 2019. Testing performed by: [facility], [address] [place] [address]., [id number] HepBsAg Nonreactive Nonreactive [facility] Comment:Testing performed by : [facility], [address] [place] [address]., [id number] Blood specimen (specimen) 01/07/2020 3:43 AM CDT 01/07/2020 7:37 AM CDT Federico Garcia MD LAB MICROBIOLOGY - GENE RAL ORDERABLES Final Result [facility] [address] Department of Laboratories [place] [id number] * COLONOSCOPY (03/29/2016) Colonoscopy Unknown Comment:cologaurd us Historical Provider HEALTH MAINTENANCE Final Result from Last 3 Months or Most Recently Relevant to Health Maintenance Insurance [facility] [place] [facility] [place] [facility] MEDIC[facility] HMO Advance Directives For more information, please contact: [phone] * Full Code (Latest Code Status on File) Date Activated Date Inactivated Comments 01/05/2020 8:57 PM 01/09/2020 5:33 PM Care Teams 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 [address] [address] [place] [id number] PCP - General 08/11/16
--- NOTE | 2025-05-11 09:10 | XR_ITS ---
WS: [id number] Left ankle, 3 views, 05/11/2025 Clinical Data: fall Comparison: None. Findings: There is a fracture of the distal left fibula. There is slight posterior dislocation of the talus from the tibia. There may be an undisplaced fracture at the medial malleolus. There is soft tissue swelling over the lateral malleolus. XR/XR ankle LT min 3V* [id number] Impression: 1. Fracture of distal left fibula with posterior dislocation of the talus from the tibia. 3. Possible undisplaced fracture of medial malleolus.
--- NOTE | 2025-05-11 09:10 | XR_ITS ---
WS: [id number] Right foot, 3 views, 05/11/2025 Clinical Data: fall Comparison: None. Findings: No fractures or dislocations are seen. No bone destruction or erosion is noted. There is a bunion of the head of the right first metatarsal. The remainder of the joint spaces is normal. XR/XR foot RT min 3V* [id number] Impression: Negative right foot.
--- NOTE | 2025-05-11 09:16 | W.ED.FALL ---
HPI - Fall General: Chief Complaint: Fall Stated Complaint: Fall Source: patient and EMS Mode of arrival: EMS Limitations: no limitations History of Present Illness: 64-year-old female states that she was cooking breakfast morning then she had tripped over a cat. States she did twist her left ankle has not been able to bear any weight on the ankle since then. She does have swelling to the lateral ankle she rates her pain is currently a 9 out of 10 she also has some slight pain in her right toes she denies any other injuries from her fall denies hitting her head denies any hip pain. Related Data Home Medications ?Medication ?Instructions ?Recorded ?Confirmed albuterol sulfate 90 mcg/actuation See Rx Instructions .Route .COMPLEX 09/19/24 09/19/24 aerosol inhaler alprazolam 0.25 mg tablet 0.25 mg PO BEDTIME 09/19/24 09/19/24 atorvastatin 40 mg tablet 40 mg PO DAILY 09/19/24 09/19/24 budesonide-formoterol HFA 160 2 puff inhalation DAILY 09/19/24 09/19/24 mcg-4.5 mcg/actuation aerosol inhaler (Symbicort) carvedilol 25 mg tablet 25 mg PO BID 09/19/24 09/19/24 escitalopram oxalate 20 mg tablet 20 mg PO DAILY 09/19/24 09/19/24 ezetimibe 10 mg tablet 10 mg PO DAILY 09/19/24 09/19/24 levothyroxine 75 mcg tablet 75 mcg PO DAILY 09/19/24 09/19/24 losartan 50 mg tablet 50 mg PO DAILY 09/19/24 09/19/24 pregabalin 75 mg capsule 75 mg PO DAILY 09/19/24 09/19/24 tiotropium bromide 2.5 2 puff inhalation DAILY 09/19/24 09/19/24 mcg/actuation mist for inhalation (Spiriva Respimat) trazodone 100 mg tablet 200 mg PO BEDTIME 09/19/24 09/19/24 Previous Rx's ?Medication ?Instructions ?Recorded hydrocodone 5 mg-acetaminophen 325 1 tab PO Q6H PRN pain #14 tabs 09/19/24 mg tablet hydrocodone 5 mg-acetaminophen 325 1 tab PO Q8H PRN pain #14 tabs 05/11/25 mg tablet Allergies Allergy/AdvReac Type Severity Reaction Status Date / Time No Known Allergies Allergy Verified 09/19/24 11:13 Review of Systems Musc: Reports: extremity pain Physical Exam Const: COMMON NORMALS: no acute distress, patient oriented x3 and healthy appearing HENMT: COMMON NORMALS: normocephalic and atraumatic HEAD & SCALP: normocephalic and atraumatic Neck/C-Spine: COMMON NORMALS: full ROM and supple Chest: COMMONS NORMALS: normal inspection of the chest Resp: COMMON NORMALS: normal respiratory effort Cardio: COMMON NORMALS: regular rate, regular rhythm and No murmurs present (Cardio) RATE: regular rate RHYTHM: regular rhythm Extremity: COMMON NORMALS: full ROM NARRATIVE EXTREMITY EXAM: swelling to left lateral ankle and tenderness Neuro: COMMON NORMALS: patient oriented x3, moves all extremities and no focal motor deficits Psych: COMMON NORMALS: mental status grossly normal, Normal thought process present and cooperative THOUGHT PROCESS: Normal thought process present Skin: COMMON NORMALS: no rashes or lesions noted and no wounds GENERAL SKIN EXAM: no rashes or lesions noted Procedures Orthopedic Splinting/Casting Injury #1: Side: left Lower Extremity Injury Location: ankle Lower Extremity Immobilizer: stirrup splint Other Orthopedic Equipment: crutches Course Vital Signs: Vital signs: Vital Signs Temperature 97.8 F 05/11/25 09:05 Pulse Rate 73 05/11/25 09:48 Respiratory Rate 16 05/11/25 09:48 Blood Pressure 158/88 05/11/25 09:48 Pulse Oximetry 98 05/11/25 09:48 Oxygen Delivery Al thod Room Air 05/11/25 09:05 MDM - Fall Medical Decision Making Patient presents for left ankle injury after a fall. Patient's x-rays inter by me does show a distal left fibular fracture with a slight dislocation I did place a splint on and spoke to Dr. Stacy who is following patient up outpatient she is to be nonweightbearing. Medical Records I reviewed the patient's medical records. Lab Data Radiology Impressions Ankle X-Ray 05/11/25 09:10 Impression: 1. Fracture of distal left fibula with posterior dislocation of the talus from the tibia. 3. Possible undisplaced fracture of medial malleolus. Foot X-Ray 05/11/25 09:10 Impression: Negative right foot. All radiology interpretation(s) finalized by discharge Discharge Plan Discharge Patient Disposition: Home Clinical Impression: Ankle fracture, left Qualifiers: Encounter type: initial encounter Fracture type: closed Qualified Code(s): S82.892A - Other fracture of left lower leg, initial encounter for closed fracture Condition: Stable Prescriptions: New hydrocodone-acetaminophen 5-325 mg tablet 1 tab PO Q8H PRN (Reason: pain) Qty: 14 0RF No Action losartan 50 mg tablet 50 mg PO DAILY atorvastatin 40 mg tablet 40 mg PO DAILY carvedilol 25 mg tablet 25 mg PO BID levothyroxine 75 mcg tablet 75 mcg PO DAILY alprazolam 0.25 mg tablet 0.25 mg PO BEDTIME trazodone 100 mg tablet 200 mg PO BEDTIME albuterol sulfate 90 mcg/actuation HFA aerosol inhaler See Rx Instructions .ROUTE .COMPLEX Rx Instructions: INHALE two puffs BY MOUTH EVERY 4 TO 6 HOURS NEEDED FOR SHORTNESS OF BREATH escitalopram oxalate 20 mg tablet 20 mg PO DAILY ezetimibe 10 mg tablet 10 mg PO DAILY pregabalin 75 mg capsule 75 mg PO DAILY budesonide-formoterol [Symbicort] 160-4.5 mcg/actuation HFA aerosol inhaler 2 puff INHALATION DAILY Spiriva Respimat 2.5 mcg/actuation mist 2 puff INHALATION DAILY hydrocodone-acetaminophen 5-325 mg tablet 1 tab PO Q6H PRN (Reason: pain) Qty: 14 0RF Discharge Orders: Discharge ED (Routine); Ordered 05/11/25 Ordered By: Yessica Sharma Referrals: Vaibhav Stacy DPM [Physician, Podiatry] - 4-7 days Discharge Diet: Advance as tolerated Discharge Activity: Use walker/crutches as instructed Patient Instructions: Ankle Fracture (ED), Opioid Safety Print Language: Taiwanese Coding Level of Care Code ED Parking Ramp Attendant for Anahy Singleton
[2025-05-11 09:47] VITALS: RESP 16; O2SAT 99
[2025-05-11] MEDS: morphine 4 mg/mL SDV 1 mL IM (09:47)
[2025-05-11 09:48] VITALS: BP 158/88; PULSE 73; RESP 16; O2SAT 98
[2025-05-11 10:51] VITALS: BP 151/89; PULSE 79; O2SAT 95
== END 2025-05-11 10:53 | disposition home or self-care (01) ==
PROVIDERS: Emergency Provider Emergency Medicine; PCP Family Medicine
DX: S82.832A Other fracture of upper and lower end of left fibula, initial encounter for closed fracture (principal); S93.05XA Dislocation of left ankle joint, initial encounter; W01.0XXA Fall on same level from slipping, tripping and stumbling without subsequent striking against object, initial encounter
CPT/HCPCS: 29515; 73610; 73630; 93005; 96372; 99284; J2270

== ENCOUNTER → 2025-05-13 13:20 | Outpatient (BNVA) | payer MEDICARE, MEDICAID, SELFPAY | PROVIDERS: PCP Family Medicine; Visit Provider Podiatrist Foot & Ankle Surgery | DX: S82.852A Displaced trimalleolar fracture of left lower leg, initial encounter for closed fracture (principal); S93.432A Sprain of tibiofibular ligament of left ankle, initial encounter; X58.XXXA Exposure to other specified factors, initial encounter | CPT/HCPCS: 99204 ==

== ENCOUNTER 2025-05-13 14:28 | Outpatient (CLI) | payer MEDICARE, MEDICAID, SELFPAY | END 2025-05-13 14:29 | disposition home or self-care (01) | LOC: SPT 14:29 | PROVIDERS: PCP Family Medicine; Visit Provider Podiatrist Foot & Ankle Surgery | DX: S82.852A Displaced trimalleolar fracture of left lower leg, initial encounter for closed fracture (principal); X58.XXXA Exposure to other specified factors, initial encounter | CPT/HCPCS: L4361 ==